=== PATIENT | female | born 1980 | race Caucasian/White ===

== ENCOUNTER 2017-12-10 14:26 | Emergency (ER) | END 2017-12-10 20:56 | disposition home or self-care (01) ==

== ENCOUNTER 2018-07-23 15:35 | Emergency (ER) | END 2018-07-23 19:13 | disposition home or self-care (01) ==

== ENCOUNTER 2018-10-16 11:35 | Emergency (ER) | END 2018-10-16 14:09 | disposition home or self-care (01) ==

== ENCOUNTER 2019-06-09 22:43 | Emergency (ER) | payer SELFPAY ==
[~2019-06-09] VITALS: Ht 167.6 cm; Wt 123.7 kg
[~2019-06-09 22:43] MED LIST: IBUP-1542 PO; NAPR-985 PO; ONDA4TAB8 PO; OSEL75CA23 PO; TYL500 PO; [UNRECOGNIZED DRUG - REMARK]
[2019-06-09 22:46] VITALS: BP 177/91; PULSE 76; RESP 18; Ht 167.6 cm; Wt 123.7 kg
== END 2019-06-10 00:50 | disposition left against medical advice (07) ==
LOC: E/R 22:43
DX: Z53.21 Procedure and treatment not carried out due to patient leaving prior to being seen by health care provider (principal)

== ENCOUNTER 2019-09-24 18:54 | Emergency (ER) | payer MEDICAID ==
[~2019-09-24] VITALS: Ht 167.6 cm; Wt 122.3 kg
[~2019-09-24 18:54] MED LIST changes: +NITR-58 PO
[2019-09-24 19:12] VITALS: Ht 167.6 cm; Wt 122.3 kg
== END 2019-09-24 21:00 | disposition home or self-care (01) ==
LOC: FTE 18:54
DX: N30.90 Cystitis, unspecified without hematuria (principal); I10 Essential (primary) hypertension; E11.9 Type 2 diabetes mellitus without complications; J45.909 Unspecified asthma, uncomplicated
CPT/HCPCS: 81003; 81025; 87086; 99283